=== PATIENT | male | born 1985 | race Caucasian/White ===

== ENCOUNTER 2023-04-02 09:48 | Outpatient (CLI) | payer OTHER ==
--- NOTE | 2023-04-02 10:15 | SLEEP CARE CONSULTATION ---
Information from patient questionnaire entered by Shila Leong. I have reviewed and concur with the information entered by Shila Leong. This document represents the service I personally performed and the decisions made by me, Mynor Soria MD, [facility]. History of Present Illness Service Date and Time: 04/02/2023 0948 Reason for Visit: New patient Chief Complaint: reports: Snoring, Excessive daytime sleepiness, Observed pauses in breathing, Fatigue, Frequent awakenings at night Date of Onset: YRS Usual bedtime: 9PM Time it takes to fall asleep: 30-90MIN Snores at night: Yes Observed to quit breathing while asleep: Yes Sleeps alone due to snoring: No Number of times waking at night: 3-5 Reasons for waking at night: reports: Snoring, Bathroom Toss, Turn, or Twitch while sleeping: Yes Recalls having dreams: Yes Usually gets out of bed at: 5AM Feels refreshed in the morning: No Morning headache: No Sleepy or fatigued during the day: Yes Ever fallen asleep while driving: No Takes day naps: Yes Dreams during day naps: Yes Prior sleep studies: No Additional HPI information: I had the pleasure of seeing Mr. Wilhelm today regarding the possibility of him having a sleep disorder. As you know, he is a 38-year-old gentleman who complains of loud snores, and observed apneas, according to his . The patient tells me that he normally goes to bed around 9 pm, and it takes him approximately 30 - 90 minutes to fall asleep. His can still sleep in the same bed. He can recall waking up on the average of 3 - 5 times during the night. Most of the time he wakes up because of having to use the bathroom and his own snore. There is a lot of tossing and turning in his sleep. He has somniloquy (sleep talking) but not somnambulism (sleep walking). Generally, he can recall having dreams. In the morning he usually gets up out of the bed around 5 a.m. not feeling refreshed nor rested. He usually does not have a morning headache. During the day he complains of feeling sleepy and fatigued. His score on [place] Sleepiness Scale is 13 out of 24. He has fallen asleep while driving and has gone out of the blade. He occasionally takes naps during the day. He reports having impaired concentration during the day. - Parasomnia Symptoms Ever been unable to move upon waking from sleep: No Walks in sleep: No Talks in sleep: Yes Ever acted out dreams in sleep: No Ever felt weak in the knees when startled or emotional: No Bothered by creepy, crawly, restless sensations in legs: Yes Problems with memory or concentration: Yes Subjective Initial [place] Sleepiness Scale score: 13 (04/02/23) Social History The patient's occupation is a AM. Patient is and lives in [place]. Have you smoked in the past 12 months: No Alcohol use: Yes Alcohol amount and frequency: 1-3 WEEKLY Caffeine use: Yes Caffeine amount and frequency: 1-2 DAILY Family History Family history of sleep disordered breathing: No Allergies and Home Medications Known drug allergies: No Drug allergies reviewed: Yes Home medication list reviewed: Yes Review of Systems Cardiovascular: reports: high blood pressure Respiratory: denies: shortness of breath, wheeze, sputum production, chronic cough, other Gastrointestinal: reports: heartburn Urinary: denies: incontinence, frequency, urgency, impotence, other Neurological: reports: headaches Psychiatric: denies: Attention Deficit Hyperactivity, anxiety, depression, mood disorder, claustrophobia, other Ear/Nose/Throat: denies: nasal congestion, sinus problems, nose bleeds, dry mouth/throat, hoarseness, injury to nose, tonsillectomy, wisdom teeth removed, other Endocrine: reports: sluggishness Immunologic: reports: sneezing, allergies to food or environment Physical Exam Vital signs obtained and entered by: SHILA Davis MA Blood Pressure: 132/84 (LEFT ARM) Cuff size: regular Heart Rate: 54 O2 Saturation: 98 Height: 6 ft Weight: 248 lb 3.2 oz Body Mass Index: 33.6 BMI Classification: Obese Neck circumference: 17.75 Mood/affect: Normal HEENT: No craniofacial malformation Nostrils: patent to airflow Turbinates: normal Septum: midline Mouth and throat: narrow oropharynx Soft palate: long Hard palate: normal Uvula: normal Uvula visualization: 50% Mallampati Class II Tongue: normal in size Tonsils: small Chin and jaw: normal size and position Neck: normal w/o lymphadenopathy or thyromegaly Heart: regular rate and rhythm Lungs: clear bilaterally Extremities: no edema or clubbing Neurologic: intact Impression and Plan IMPRESSION: 1. Obstructive Sleep Apnea-Hypopnea Syndrome, as suggested by history of loud and irregular snoring, observed cessation of breath while asleep, frequent awakenings during the night, unrefreshed sleep, cognitive impairment, and daytime hypersomnolence. Narrow oropharynx and obesity are common predisposing factors for obstructive sleep apnea-hypopnea syndrome. I recommend proceeding to polysomnography to confirm the diagnosis and to assess severity. If he has significant sleep disordered breathing, a manual CPAP titration study will also be performed to find the optimal treatment pressure. I informed the patient of what the sleep studies involve and after some discussion, he agreed to proceed. Plan: 1. Schedule polysomnography + manual CPAP titration study and return in 1 to 2 weeks after the study to discuss result and initiate therapy. 2. Avoid long distance driving or when feeling sleepy. 3. Avoid alcohol, sedatives and muscle relaxants around bedtime. 4. Attempt to lose weight. Follow up with Sleep Care in: 1-2 months Plan: in-lab PSG Visit Type: In Office Time Spent with Patient (minutes): 15 Provider Statement: I spent 100% of the Face to Face Visit with the patient with greater than 50% spent counseling the patient and coordination of care.
[2023-04-02 10:16] VITALS: BP 132/84
== END 2023-04-02 09:49 | disposition home or self-care (01) ==
LOC: SC 09:48
PROVIDERS: ATTEND Internal Medicine Pulmonary Disease
DX: R06.83 Snoring (principal); G47.8 Other sleep disorders; R06.81 Apnea, not elsewhere classified; G47.10 Hypersomnia, unspecified; E66.9 Obesity, unspecified; Z68.33 Body mass index [BMI] 33.0-33.9, adult
CPT/HCPCS: 99202; 99212

== ENCOUNTER 2023-05-07 13:44 | Outpatient (CLI) | payer OTHER ==
--- NOTE | 2023-05-07 14:39 | SLEEP CARE CONSULTATION ---
Information from patient questionnaire entered by Kandi Leong. I have reviewed and concur with the information entered by Kandi Leong. This document represents the service I personally performed and the decisions made by me, Mynor Soria MD, [facility]. History of Present Illness Service Date and Time: 05/07/2023 1344 Initial [place] Sleepiness Scale score: 13 (04/02/23) Current [place] Sleepiness Scale score: 13 (05/07/23) Additional HPI information: Mr. Wilhelm returned for follow up of the sleep study he had on 04/08/23. The polysomnography showed that the patient had normal sleep efficiency. The sleep architecture was abnormal for sleep fragmentation and reduced amount of time spent in REM and slow wave sleep (N3). Respiratory monitoring showed moderate obstructive sleep apnea-hypopnea (AHI = 22.2) associated with frequent arousals, oxyhemoglobin desaturation and mild hypoxia (christian oxygen saturation of 85%). The respiratory events occurred predominantly during supine sleep (supine AHI = 80.6; non-supine = 6.49). Snore was very loud in intensity. There was no significant periodic leg movement of sleep. Cardiac rhythm was normal sinus rhythm without significant arrhythmia. No abnormal behavior (parasomnia) observed during the night. The patient was informed of these findings. I explained to him the pathophysiology behind obstructive sleep apnea. We then spent quite a bit of time discussing different treatment options. For mild obstructive sleep apnea, surgery and oral appliance are alternatives to nasal CPAP therapy but in moderate or severe cases, nasal CPAP is the most effective and reliable treatment. Weight loss in an obese individual is strongly recommended. After some discussion, he opted to go with the nasal CPAP therapy. I explained to him how CPAP machine works and what to expect when using the machine. Sleep Study - Results Type of Sleep Study: Polysomnography (COMPLETED 04/08/23) Prior sleep studies: No Allergies and Home Medications Drug allergies reviewed: Yes Home medication list reviewed: Yes Allergy and home medication list: Allergies No Known Drug Allergies Allergy (Verified 05/04/23 10:55) Review of Systems Review of systems same as previous: Yes Physical Exam Vital signs obtained and entered by: KANDI Davis MA Blood Pressure: 126/72 (LEFT ARM) Cuff size: regular Heart Rate: 79 O2 Saturation: 97 Height: 6 ft Weight: 246 lb Body Mass Index: 33.3 BMI Classification: Obese Impression and Plan IMPRESSION: 1. Obstructive Sleep Apnea-Hypopnea Syndrome, moderate, associated with mild hypoxemia and sleep fragmentation. Most likely, this is the cause of the patients symptoms of unrefreshed sleep, and excessive daytime sleepiness. As mentioned above, the patient will be started on CPAP set at xx cmH2O. Depending on his response and compliance he may be brought back for an overnight CPAP titration study. PLAN: 1. Nasal CPAP set at xx cm H2O. 2. Attempt to lose weight and avoid alcohol consumption near bedtime. 3. Check thyroid function if not already done. 4. The patient is again cautioned about driving until his sleepiness completely resolves on the CPAP therapy. 5. Return in one month for follow up. I will assess his response and compliance at that time. Counseling Topics: Weight control Follow up with Sleep Care in: 1-2 months Visit Type: In Office Time Spent with Patient (minutes): 15 Provider Statement: I spent 100% of the Face to Face Visit with the patient with greater than 50% spent counseling the patient and coordination of care.
[2023-05-07 14:40] VITALS: BP 126/72; O2SAT 97
== END 2023-05-07 13:45 | disposition home or self-care (01) ==
LOC: SC 13:44
PROVIDERS: ATTEND Internal Medicine Pulmonary Disease
DX: G47.33 Obstructive sleep apnea (adult) (pediatric) (principal); E66.9 Obesity, unspecified; Z68.33 Body mass index [BMI] 33.0-33.9, adult
CPT/HCPCS: 99212

== ENCOUNTER 2023-07-09 11:29 | Outpatient (CLI) | payer OTHER ==
[2023-07-09 12:06] VITALS: BP 118/78; O2SAT 96
--- NOTE | 2023-07-09 12:06 | SLEEP CARE CONSULTATION ---
Information from patient questionnaire entered by Kandi Leong. I have reviewed and concur with the information entered by Kandi Leong. This document represents the service I personally performed and the decisions made by me, Mynor Soria MD, [facility]. History of Present Illness Service Date and Time: 07/09/2023 1129 Initial [place] Sleepiness Scale score: 13 (04/02/23) Current [place] Sleepiness Scale score: 15 (07/09/23) Additional HPI information: Mr. Wilhelm returns for follow up of the sleep study (a manual CPAP titration study) he had on 06/13/2023. The polysomnography showed that CPAP was initiated at 5 cmH2O and titrated up to CPAP at 14 cmH2O. CPAP at 10 cmH2O appeared to be optimal (AHI of 0 per hour on the pressure). There was supine REM sleep on the pressure. Oxygen saturation was normal throughout the night. Lower CPAP settings appeared adequate as well. The patient tolerated positive airway pressure therapy very well using a nasal mask. The patients sleep efficiency was normal. The sleep architecture was also normal. There was no significant periodic leg movement of sleep. Cardiac rhythm was normal sinus rhythm without significant arrhythmia. No abnormal behavior (parasomnia) observed during the night. The patient was informed of these findings. He has not been started on the positive airway pressure therapy yet. Sleep Study - Results Type of Sleep Study: Polysomnography (COMPLETED 04/08/23 TITRATION F/U 06/13/23) Prior sleep studies: No Allergies and Home Medications Drug allergies reviewed: Yes Home medication list reviewed: Yes Allergy and home medication list: Allergies No Known Drug Allergies Allergy (Verified 07/06/23 11:51) Review of Systems Review of systems same as previous: Yes Physical Exam Vital signs obtained and entered by: KANDI Davis MA Blood Pressure: 118/78 (LEFT ARM) Cuff size: regular Heart Rate: 72 O2 Saturation: 96 Height: 6 ft Weight: 256 lb 3.2 oz Body Mass Index: 34.7 BMI Classification: Obese Impression and Plan IMPRESSION: 1. Obstructive Sleep Apnea-Hypopnea Syndrome, moderate, adequately controlled with CPAP of 10 cmH2O. Based his CPAP titration study, I will start him on an autoCPAP set at to 5 - 10 cmH2O. I I anticipate good treatment compliance. PLAN: 1. Prescription made for an autoCPAP, heated humidifier, and related supplies. 2. Attempt to lose weight. 3. Return for follow up after one month of using the CPAP. Counseling Topics: Weight control Prescriptions: Auto CPAP Follow up with Sleep Care in: 1-2 months Visit Type: In Office Time Spent with Patient (minutes): 15 Provider Statement: I spent 100% of the Face to Face Visit with the patient with greater than 50% spent counseling the patient and coordination of care.
== END 2023-07-09 11:30 | disposition home or self-care (01) ==
LOC: SC 11:29
PROVIDERS: ATTEND Internal Medicine Pulmonary Disease
DX: G47.33 Obstructive sleep apnea (adult) (pediatric) (principal); E66.9 Obesity, unspecified; Z68.34 Body mass index [BMI] 34.0-34.9, adult
CPT/HCPCS: 99212

== ENCOUNTER 2023-08-09 14:03 | Emergency (ER) | payer OTHER ==
[2023-08-09 14:28] VITALS: BP 159/62; O2SAT 98
--- NOTE | 2023-08-09 15:20 | ED Physician Documentation ---
History of Present Illness - Stated complaint Stated Complaint: SOA/FACIAL SWELLING - Chief complaint Chief Complaint: Allergic Rx - History obtained from History obtained from: Patient - History of Present Illness Timing: Today Pain level max: 0 Pain level now: 0 - Additonal information Additional information: 38-year-old male presents to the emergency department after ingesting Motrin earlier today. He states he is allergic to Motrin. This occurred approximately 4 hours prior to arrival. Took Benadryl. He states he felt like his face was swollen, feels normal now. No difficulty speaking. No difficulty breathing. No nausea, vomiting. No rash. Patient states that he feels pretty normal now. Review of Systems Constitutional: denies: Fever, Chills GI: denies: Vomiting Skin: denies: Rash PD PAST MEDICAL HISTORY - Past Medical History Past Medical History: Yes Neuro: Migraines Psych: Depression - Past Surgical History Past Surgical History: No - Present Medications Home Medications: Ambulatory Orders Medication Instructions Recorded Confirmed No Known Home Medications 04/02/23 08/09/23 - Allergies Allergies/Adverse Reactions: Allergies Allergy/AdvReac Type Severity Reaction Status Date / Time MOTRIN MIGRAINE Allergy Intermediate Edema Uncoded 07/09/23 11:34 - Social History Does the pt smoke?: No Smoking Status: Never smoker PD ED PE NORMAL - Vitals Vital signs reviewed: Yes - General General: Alert and oriented X 3, No acute distress - HEENT HEENT: Moist mucous membranes, Pharynx benign, Other (No stridor. No wheezing.) - Neck Neck: Supple, no meningeal sign - Cardiac Cardiac: RRR - Respiratory Respiratory: No respiratory distress, Clear bilaterally - Abdomen Abdomen: Soft, Non tender, Non distended - Derm Derm: Warm and dry, No rash - Neuro Neuro: Alert and oriented X 3 Results - Vitals Vitals: Vital Signs - 24 hr 08/09/23 08/09/23 14:15 15:10 Temperature 36.2 C L Heart Rate 68 Respiratory 18 18 Rate Blood Pressure 159/62 H O2 Saturation 98 Oxygen O2 Source Room air PD Medical Decision Making - ED course Complexity details: considered differential, d/w patient ED course: 30-year-old male status post an ibuprofen ingestion about 4 hours prior to arrival. Has a known allergy. Asymptomatic currently. Given a dose of prednisone here. No indication for epinephrine. No evidence of anaphylaxis. We will have him stay away from ibuprofen in the future and follow-up with his PCP for further care. Patient counseled regarding signs and symptoms for which I believe and urgent re-evaluation would be necessary. Patient with good understanding of and agreement to plan and is comfortable going home at this time This document was made in part using voice recognition software. While efforts are made to proofread this document, sound alike and grammatical errors may occur. Departure - Departure Disposition: 01 Home, Self Care Clinical Impression: Allergic reaction Qualifiers: Encounter type: initial encounter Qualified Code(s): T78.40XA - Allergy, unspecified, initial encounter Condition: Good Instructions: ED Drug React Allergic Follow-Up: ZHENG DIAZ MD [Primary Care Provider] - Within 1 week Comments: You were given a dose of prednisone here today. Please refrain from any further ibuprofen or Motrin. Please follow-up with your doctor for further care. They may want to refer you to an order entry for further testing. Please return if you worsen including increasing swelling, trouble breathing or trouble speaking. Forms: PCP List
[2023-08-09] MEDS: predniSONE 20 MG TABLET PO STA (15:30)
== END 2023-08-09 15:41 | disposition home or self-care (01) ==
LOC: ED 14:03
DX: R22.0 Localized swelling, mass and lump, head (principal); T39.315A Adverse effect of propionic acid derivatives, initial encounter; Z88.6 Allergy status to analgesic agent
CPT/HCPCS: 99282